=== PATIENT | female | born 1945 | race Caucasian/White ===

== ENCOUNTER 2017-04-01 19:14 | Emergency (ER) | payer MEDICARE, OTHER ==
[~2017-04-01] VITALS: Ht 154.9 cm; Wt 68.0 kg
[~2017-04-01 19:14] MED LIST: ACTONEL150 MG; ACTONEL150 MG PO; ALBUTEROL2.5 MG/0.5 INH; AMLODIPINE BESY10 MG PO; ASPIR 8181 MG PO; AZITHROMYCIN 2250 MG PO; BRILINTA90 MG PO; CALCIUM 600 +1 EAC1 PO; CITRACAL + D E1 EACH PO; CRESTOR20 MG PO; EFFIENT10 MG; ESTRACE CREAM TOP; FLEXERIL PO; HYDROCODONE-AP1 EAC6 PO; IBUPROFEN 800800 M1 PO; MOBIC15 MG PO; MULTIVITAMINS1 EAC7 PO; NITROGLYCERIN0.4 MG SUBLING; OMEPRAZOLE40 MG PO; PREVALITE PACKE1 PKT; PREVALITE PACKE1 PKT PO; PROBIOTIC1 EAC1 PO; PROLOPRIM100 MG PO; TESSALON PERLE100 MG PO; VENTOLIN HFA 1818 GM INH; XIIDRA1 EACH OP; ZANTAC 150MG T150 MG PO; ZOFRAN ODT4 MG PO
[2017-04-01] MEDS ORDERED: CARAFATE 1 GM TA1 G1 PO (19:25)
[2017-04-01] MEDS ORDERED: VENTOLIN HFA 1818 GM INH (19:26)
[2017-04-01] MEDS ORDERED: AMOX TR-K CLV1 EAC4 PO (19:27)
[2017-04-01 19:56] LABS: ABSOLUTE EOSINOPHILS 0.1 thou/uL (0.0-0.7); ABSOLUTE LYMPHOCYTES 1.2 thou/uL (0.8-5.3); ABSOLUTE MONOCYTES 0.4 thou/uL (0.0-1.2); ABSOLUTE NEUTROPHILS 2.1 thou/uL (1.6-8.1); BASOPHILS 0.6 %; EOSINOPHILS 3.2 %; HEMATOCRIT 37.2 % (37.0-47.0); HEMOGLOBIN 12.8 gm/dL (12.0-15.0); LYMPHOCYTES 30.2 %; MCH 30.2 pg (26.0-34.0); MCHC 34.4 g/dL (28.0-37.0); MCV 87.9 fL (80.0-100.0); MONOCYTES 11.3 %; NUCLEATED RBCS 0 /100WBC; PLATELET COUNT* 221 thou/uL (150-400); POLYS 54.7 %; RBC 4.23 mil/uL (4.20-5.00); RDW-CV 14.2 % (10.5-14.5); WBC 3.9 thou/uL (4.0-11.0)
[2017-04-01 20:16] LABS: ANION GAP 7 mmol/L (7-16); BUN 12 mg/dL (7-18); CHLORIDE 105 mmol/L (98-107); CO2 29 mmol/L (21-32); CREATININE 0.9 mg/dL (0.6-1.3); GLUCOSE 113 mg/dL (70-99); POTASSIUM 3.8 mmol/L (3.5-5.1); SODIUM 141 mmol/L (136-145)
[2017-04-01 20:23] LABS: ALBUMIN 3.7 g/dL (3.4-5.0); ALKALINE PHOSPHATASE 70 U/L (46-116); SGOT 26 U/L (15-37); SGPT 24 U/L (30-65); TOTAL BILIRUBIN 0.4 mg/dL (<0.1-1.0); TOTAL PROTEIN 6.8 g/dL (6.4-8.2); TROPONIN-I LEVEL <0.06 ng/mL (<0.06)
[2017-04-01] MEDS ORDERED: ALBUTEROL2.5 MG/0.5 INH (20:50)
[2017-04-01] MEDS ORDERED: PREDNISONE 20 M20 M1 PO (20:50)
[2017-04-01 21:10] VITALS: BP 130/56
--- NOTE | 2017-04-02 12:04 | EKG ---
[place] [address] ELECTROCARDIOGRAM REPORT Name: AMBREEN RAZA Room: [facility]#: [id number] Admission: 04/01/17 Attend Phys: Discharge: 04/01/17 Date of : 47 Report #: [id number] THIS REPORT FOR: //name// [facility] ED Test Date: 2017-04-01 Test Time: 19:40:03 Pat Name: AMBREEN RAZA Department: Room: Gender: F Marketing Research Coordinator: ROMINA Salinas : 1945 Requested By: Sukhi Parada Order Number: [id number] MD: Mike Hernandez Measurements Intervals [place] Rate: 87 P: 51 MD: 170 QRS: -10 QRSD: 86 T: 2 QT: 369 QTc: 444 Interpretive Statements Sinus rhythm Low voltage, precordial leads Left ventricular hypertrophy Anterior Q waves, possibly due to LVH Borderline T abnormalities, inferior leads Compared to ECG 09/15/2016 08:42:22 Low QRS voltage now present Left ventricular hypertrophy now present Q waves now present Electronically Signed On 04-02-2017 12:03:54 [employer]ARN MANAGER by Mike Hernandez [email or web address] <ELECTRONICALLY SIGNED> By: Mike Hernandez MD, [facility] 04/02/17 1203 [id number] 39 Mike Hernandez MD, [facility] /EPI
== END 2017-04-01 21:11 | disposition home or self-care (01) ==
LOC: M.ERS 19:14
PROVIDERS: Nurse Practitioner Family
DX: B34.9 Viral infection, unspecified (principal); J06.9 Acute upper respiratory infection, unspecified; I10 Essential (primary) hypertension; Z90.89 Acquired absence of other organs; Z90.711 Acquired absence of uterus with remaining cervical stump; Z88.8 Allergy status to other drugs, medicaments and biological substances; Z88.1 Allergy status to other antibiotic agents; Z88.2 Allergy status to sulfonamides

== ENCOUNTER 2017-04-30 11:06 | Emergency (ER) | payer MEDICARE, OTHER ==
[~2017-04-30] VITALS: Ht 154.9 cm; Wt 68.0 kg
[~2017-04-30 11:06] MED LIST changes: +AMOX TR-K CLV1 EAC4 PO; +CARAFATE 1 GM TA1 G1 PO; +PREDNISONE 20 M20 M1 PO
[2017-04-30] MEDS ORDERED: ALIGN4 MG PO (11:20)
[2017-04-30] MEDS ORDERED: PROLOPRIM100 MG PO (11:20)
[2017-04-30 12:02] LABS: ABSOLUTE EOSINOPHILS 0.2 thou/uL (0.0-0.7); ABSOLUTE LYMPHOCYTES 1.4 thou/uL (0.8-5.3); ABSOLUTE MONOCYTES 0.4 thou/uL (0.0-1.2); ABSOLUTE NEUTROPHILS 3.1 thou/uL (1.6-8.1); BASOPHILS 0.9 %; EOSINOPHILS 3.5 %; HEMOGLOBIN 12.1 gm/dL (12.0-15.0); LYMPHOCYTES 26.7 %; MCH 30.1 pg (26.0-34.0); MCHC 34.5 g/dL (28.0-37.0); MCV 87.2 fL (80.0-100.0); MONOCYTES 7.6 %; MPV 8.6 fl. (7.2-11.1); NUCLEATED RBCS 0 /100WBC; PLATELET COUNT* 259 thou/uL (150-400); POLYS 61.3 %; RBC 4.01 mil/uL (4.20-5.00); RDW-CV 14.4 % (10.5-14.5); WBC 5.1 thou/uL (4.0-11.0)
[2017-04-30 12:17] LABS: CALCIUM 8.2 mg/dL (8.5-10.1); CREATININE 0.9 mg/dL (0.6-1.3); POTASSIUM 3.7 mmol/L (3.5-5.1)
[2017-04-30 12:21] LABS: ALBUMIN 3.6 g/dL (3.4-5.0); TOTAL BILIRUBIN 0.4 mg/dL (<0.1-1.0); TOTAL PROTEIN 6.4 g/dL (6.4-8.2)
[2017-04-30] MEDS ORDERED: ALBUTEROL2.5 MG/31 INH (13:58)
[2017-04-30] MEDS ORDERED: PREDNISONE 10 M10 M1 PO (13:58)
[2017-04-30 14:04] VITALS: BP 124/59
--- NOTE | 2017-04-30 15:22 | EKG ---
[place] [address] ELECTROCARDIOGRAM REPORT Name: AMBREEN RAZA Room: [facility]#: [id number] Admission: 04/30/17 Attend Phys: Discharge: 04/30/17 Date of : 47 Report #: [id number] THIS REPORT FOR: //name// [facility] ED Test Date: 2017-04-30 Test Time: 13:14:40 Pat Name: AMBREEN RAZA Department: Room: Gender: F Etcher Hand: Brad VINCENT : 1945 Requested By: Zandra Blake Order Number: [id number] MD: Mike Hernandez Measurements Intervals [place] Rate: 76 P: 56 OK: 166 QRS: -3 QRSD: 93 T: 2 QT: 414 QTc: 466 Interpretive Statements Sinus rhythm Low voltage, precordial leads Borderline T abnormalities, inferior leads Compared to ECG 04/01/2017 19:40:03 Left ventricular hypertrophy no longer present T-wave abnormality still present Electronically Signed On 04-30-2017 15:22:05 [employer] by Mike Hernandez [email or web address] <ELECTRONICALLY SIGNED> By: Mike Hernandez MD, FAC 04/30/17 1522 1314 1314 Mike Hernandez MD, [facility] /EPI
== END 2017-04-30 14:04 | disposition home or self-care (01) ==
LOC: M.ERS 11:06
PROVIDERS: Nurse Practitioner Family
DX: J40 Bronchitis, not specified as acute or chronic (principal); I10 Essential (primary) hypertension; Z88.2 Allergy status to sulfonamides; Z88.8 Allergy status to other drugs, medicaments and biological substances; Z88.1 Allergy status to other antibiotic agents; Z98.890 Other specified postprocedural states; Z90.711 Acquired absence of uterus with remaining cervical stump

== ENCOUNTER → 2017-09-17 | Outpatient (CLI) | payer MEDICARE, OTHER ==
[~2017-09-17] MED LIST changes: +ALBUTEROL2.5 MG/31 INH; +ALIGN4 MG PO; +BUTALB-APAP-CA1 EACH PO; +CITRACAL-VIT D1 EACH PO; +CLONIDINE0.1 PO; +COZAAR 25 MG TA25 M1 PO; +PREDNISONE 10 M10 M1 PO; +ULTRAM 50MG TAB50 MG PO
[2017-09-17 14:54] LABS: CALCIUM 8.9 mg/dL (8.5-10.1); CREATININE 0.9 mg/dL (0.6-1.3); POTASSIUM 3.9 mmol/L (3.5-5.1)
== END ==
LOC: M.LAB 14:09
PROVIDERS: Nurse Practitioner
DX: I10 Essential (primary) hypertension (principal); I25.10 Atherosclerotic heart disease of native coronary artery without angina pectoris; Z95.5 Presence of coronary angioplasty implant and graft

== ENCOUNTER → 2017-10-07 | Outpatient (CLI) | payer MEDICARE, OTHER ==
[2017-10-07 14:07] LABS: CALCIUM 8.3 mg/dL (8.5-10.1); POTASSIUM 3.8 mmol/L (3.5-5.1)
== END ==
LOC: M.LAB 13:37
PROVIDERS: Nurse Practitioner
DX: I10 Essential (primary) hypertension (principal); I25.10 Atherosclerotic heart disease of native coronary artery without angina pectoris

== ENCOUNTER 2017-10-28 14:45 | Emergency (ER) | payer MEDICARE, OTHER ==
[~2017-10-28] VITALS: Ht 154.9 cm; Wt 68.0 kg
[~2017-10-28 14:45] MED LIST changes: -BUTALB-APAP-CA1 EACH PO; -CITRACAL-VIT D1 EACH PO; -CLONIDINE0.1 PO; -COZAAR 25 MG TA25 M1 PO; -ULTRAM 50MG TAB50 MG PO
[2017-10-28] MEDS ORDERED: CITRACAL-VIT D1 EACH PO (15:00)
[2017-10-28] MEDS ORDERED: COZAAR 25 MG TA25 M1 PO (15:01)
[2017-10-28 15:44] LABS: ABSOLUTE BASOPHILS 0.1 thou/uL (0.0-0.2); ABSOLUTE EOSINOPHILS 0.1 thou/uL (0.0-0.7); ABSOLUTE LYMPHOCYTES 1.4 thou/uL (0.8-5.3); ABSOLUTE MONOCYTES 0.3 thou/uL (0.0-1.2); ABSOLUTE NEUTROPHILS 5.2 thou/uL (1.6-8.1); EOSINOPHILS 1.1 %; HEMATOCRIT 40.8 % (37.0-47.0); HEMOGLOBIN 13.8 gm/dL (12.0-15.0); LYMPHOCYTES 19.3 %; MCH 29.8 pg (26.0-34.0); MCHC 33.9 g/dL (28.0-37.0); MCV 87.8 fL (80.0-100.0); MONOCYTES 4.5 %; MPV 8.8 fl. (7.2-11.1); NUCLEATED RBCS 0 /100WBC; PLATELET COUNT* 280 thou/uL (150-400); POLYS 74.1 %; RBC 4.65 mil/uL (4.20-5.00); RDW-CV 14.5 % (10.5-14.5)
[2017-10-28 15:54] LABS: ANION GAP 7 mmol/L (7-16); BUN 14 mg/dL (7-18); CHLORIDE 101 mmol/L (98-107); CO2 28 mmol/L (21-32); CREATININE 0.8 mg/dL (0.6-1.3); GLUCOSE 98 mg/dL (70-99); SODIUM 136 mmol/L (136-145)
[2017-10-28 16:01] LABS: ALBUMIN 4.2 g/dL (3.4-5.0); ALKALINE PHOSPHATASE 66 U/L (46-116); SGOT 25 U/L (15-37); SGPT 28 U/L (30-65); TOTAL BILIRUBIN 0.6 mg/dL (<0.1-1.0); TOTAL PROTEIN 7.6 g/dL (6.4-8.2); TROPONIN-I LEVEL <0.06 ng/mL (<0.06)
[2017-10-28 16:51] LABS: URINE BILIRUBIN NEGATIVE (Negative); URINE BLOOD NEGATIVE (Negative); URINE CLARITY CLEAR; URINE COLOR YELLOW; URINE GLUCOSE-RANDOM NEGATIVE (Negative); URINE KETONES NEGATIVE (Negative); URINE LEUKOCYTES-REFLEX NEGATIVE (Negative); URINE NITRITE-REFLEX NEGATIVE (Negative); URINE PROTEIN NEGATIVE (Negative); URINE SPECIFIC GRAVITY 1.015 (1.005-1.030); URINE UROBILINOGEN 0.2 E.U./dl (0.2-1.0)
[2017-10-28] MEDS ORDERED: ULTRAM 50MG TAB50 MG PO (18:37)
[2017-10-28] MEDS ORDERED: BUTALB-APAP-CA1 EACH PO (18:37)
[2017-10-28] MEDS ORDERED: CLONIDINE0.1 PO (18:37)
[2017-10-28 19:04] VITALS: BP 132/61
== END 2017-10-28 19:07 | disposition home or self-care (01) ==
LOC: M.ERS 14:45
PROVIDERS: Personal Emergency Response Attendant
DX: I16.0 Hypertensive urgency (principal); I10 Essential (primary) hypertension; Z95.5 Presence of coronary angioplasty implant and graft; Z98.890 Other specified postprocedural states; Z90.711 Acquired absence of uterus with remaining cervical stump; Z88.2 Allergy status to sulfonamides; Z88.1 Allergy status to other antibiotic agents; Z88.8 Allergy status to other drugs, medicaments and biological substances

== ENCOUNTER 2020-12-12 10:21 | Emergency (ER) | payer OTHER ==
[~2020-12-12] VITALS: Ht 154.9 cm; Wt 70.3 kg
[~2020-12-12 10:21] MED LIST changes: +BUTALB-APAP-CA1 EACH PO; +CITRACAL-VIT D1 EACH PO; +CLONIDINE0.1 PO; +COZAAR 25 MG TA25 M1 PO; +ULTRAM 50MG TAB50 MG PO
[2020-12-12 12:22] VITALS: BP 146/78
== END 2020-12-12 12:22 | disposition home or self-care (01) ==
LOC: M.ERS 10:21
DX: R51.9 Headache, unspecified (principal); Z20.822 Contact with and (suspected) exposure to COVID-19; R09.81 Nasal congestion; R05.9 Cough, unspecified; I10 Essential (primary) hypertension; Z98.890 Other specified postprocedural states; Z90.89 Acquired absence of other organs; Z90.711 Acquired absence of uterus with remaining cervical stump; Z95.5 Presence of coronary angioplasty implant and graft; Z79.899 Other long term (current) drug therapy; Z79.82 Long term (current) use of aspirin; Z88.1 Allergy status to other antibiotic agents; Z88.8 Allergy status to other drugs, medicaments and biological substances; Z88.2 Allergy status to sulfonamides